=== PATIENT | male | born 1955 ===

== ENCOUNTER 2024-03-10 07:17 | Day surgery (SDC) | payer OTHER ==
--- NOTE | 2024-03-05 11:34 | EKG ---
Test Date: 2024-03-04 Test Time: 11:57:06 Construction Representative: SELENE MEASUREMENT RESULTS: Intervals: Rate: 74 MN: 162 QRSD: 106 QT: 396 QTc: 439 Reed: P: 44 MN: 162 QRS: -21 T: 21 INTERPRETIVE STATEMENTS: Sinus rhythm with premature atrial complexes with aberrant conduction Possible Left atrial enlargement Borderline ECG No previous ECG available for comparison Electronically Signed On 03-05-24 11:31:43 TAN ROOM SUPERVISOR by Mike Villagomez
[2024-03-10] MEDS ORDERED: Ringers Lactate 1,000 ML IV ONE (07:39)
[2024-03-10] MEDS ORDERED: NS 0.9% VIAL 20 ML ONE (07:54)
[2024-03-10] MEDS ORDERED: ONDANSETRON 4 MG/2 ML VIAL ONE (08:14)
[2024-03-10] MEDS ORDERED: LIDOCAINE 2% MPF 5 ML VIAL ONE (08:14)
[2024-03-10] MEDS ORDERED: FENTANYL CITR 100 MCG/2 ML ONE (08:15)
[2024-03-10] MEDS ORDERED: propofoL 200 MG/20 ML VIAL IV ONE (08:15)
[2024-03-10] MEDS ORDERED: EPHEDRINE SULF 50 MG/ML VIAL ONE (08:24)
[2024-03-10] MEDS: CEFAZOLIN SODIUM 2 GM/VIAL ONE (08:30)
[2024-03-10] MEDS: LIDOCAINE 1% MPF 30 ML VIAL ONE (08:46)
[2024-03-10] MEDS: HEPARIN 5000 UNIT/ML 1 ML VIAL ONE (08:51)
--- NOTE | 2024-03-10 09:12 | P.OP ---
Date of Service: 03/10/24 Preop diagnosis: Lung cancer Postop diagnosis: Same Procedure performed: Placement of left internal jugular Port-A-Cath device, interpretation of fluoroscopy and ultrasound Surgeon: Adalberto Canela MD Ribbon Blocker: Darby GUERRERO Estimated blood loss: Minimal Specimen: None Findings: Normal anatomy Anesthesia: General Complications: None Drains: None Fluids and blood products: Nonapplicable Disposition: Recovery room Operative note: Patient brought to the OR placed in supine position. General anesthesia began. Patient prepped and draped in usual sterile fashion. Lidocaine 1% infiltrated locally. Ultrasound device used to isolate the left internal jugular vein. 18-gauge needle used to access the left internal jugular vein. Guidewire passed. Position confirmed with fluoroscopy. A 3 cm counterincision made on the left anterior chest. Subcutaneous tissue divided and bleeding controlled cautery. Pocket created. Tunneling device used to tunnel the catheter between the 2 wounds. Seldinger technique used and the tip of the catheter placed in the SVC under fluoroscopy. Catheter cut to appropriate size and attached to the Port-A-Cath device. Port-A-Cath device attached to subcutaneous tissue with 3-0 Vicryl. Port-A-Cath device flushed with heparin and packed with heparin with good blood flow. 3-0 chromic used to reapproximate subcutaneous tissue and close skin. Sterile dressing applied. Patient awakened and taken to recovery room in good general condition. Chest x- ray has been ordered. CC: Dr. Dunbar's office
[2024-03-10] MEDS ORDERED: HYDROCODONE/APAP 7.5/325 MG TAB PO PRN (09:14)
--- NOTE | 2024-03-10 09:26 | RAD REPORT ---
Exam: Portacatheter placement CLINICAL HISTORY: Device placement 7 fluoroscopic spot images obtained. Fluoroscopy time 0.5 minutes. FINDINGS: Central venous catheter placed into the superior vena cava. Surgery performed by Dr. Canela
--- NOTE | 2024-03-10 09:35 | RAD REPORT ---
Procedure: Chest Single View HISTORY: Device placement. Port catheter placement. FINDINGS: A central venous catheter has been placed into the proximal SVC. No pneumothorax visualized.
[2024-03-10 10:47] VITALS: BP 136/70; TEMP 97.1; O2SAT 98
== END 2024-03-10 10:53 | disposition home or self-care (01) ==
LOC: OR 07:17
PROVIDERS: ATTEND Surgery
PROC: 0JH60WZ Insertion of Totally Implantable Vascular Access Device into Chest Subcutaneous Tissue and Fascia, Open Approach (ICD-10-PCS; principal; 2024-03-10 08:30)
DX: C34.12 Malignant neoplasm of upper lobe, left bronchus or lung (principal); I10 Essential (primary) hypertension; I25.10 Atherosclerotic heart disease of native coronary artery without angina pectoris
CPT/HCPCS: 93005; 71045; 36561; J1644 ×2; A4216; J2704; J2003 ×2; J3010; J2405; J7120; C1788; 76000